=== PATIENT | female | born 1945 | race Two or more races ===

== ENCOUNTER 2017-12-14 07:31 | Day surgery (SDC) | payer OTHER, BC ==
[2017-12-06 18:23] VITALS: BMI 31.3
[2017-12-14] MEDS: PHENYLEPHRINE 2.5% OPHTH SOLN 15 ML BOTTLE ONE ×5 (08:00→08:20)
[2017-12-14] MEDS ORDERED: GENTAMICIN SULFATE 0.3% OPHTHALMIC (EYE DROPS) 5ML BOTTLE OS SCH (08:00)
[2017-12-14] MEDS: KETOROLAC TROMETHAMINE 0.5% EYE DROP 1 DROP DROPS ONE ×5 (08:00→08:20)
[2017-12-14] MEDS: CYCLOPENTOLATE HCL 1% OPHTH SOLN 2 ML BOTTLE ONE ×5 (08:00→08:20)
[2017-12-14] MEDS ORDERED: TROPICAMIDE 1% OPHTH SOLN 15 ML BOTTLE OS SCH (08:00)
[2017-12-14] MEDS ORDERED: CYCLOPENTOLATE HCL 1% OPHTH SOLN 2 ML BOTTLE OS SCH (08:00)
[2017-12-14] MEDS: GENTAMICIN SULFATE 0.3% OPHTHALMIC (EYE DROPS) 5ML BOTTLE ONE ×5 (08:00→08:20)
[2017-12-14] MEDS ORDERED: KETOROLAC TROMETHAMINE 0.5% EYE DROP 1 DROP DROPS OS SCH (08:00)
[2017-12-14] MEDS: TROPICAMIDE 1% OPHTH SOLN 15 ML BOTTLE ONE ×5 (08:00→08:20)
[2017-12-14] MEDS ORDERED: PHENYLEPHRINE 2.5% OPHTH SOLN 15 ML BOTTLE OS SCH (08:00)
[2017-12-14] MEDS ORDERED: TETRACAINE 0.5% OPHTH SOLN 2 ML BOTTLE ONE (09:15)
[2017-12-14] MEDS ORDERED: POVIDONE-IODINE 5% OPHTHALMIC PREP 30 ML SOLUTION ONE (09:15)
[2017-12-14] MEDS ORDERED: EPI-SHUGARCAINE (EPINEPHRINE 0.025% & LIDOCAINE-PF 0.75%) 4ML ONE (09:15)
[2017-12-14] MEDS ORDERED: ACETYLCHOLINE 1:100 INTRA-OCUL 20 MG/2 ML KIT ONE (09:16)
[2017-12-14] MEDS ORDERED: BSS (NA/CA/MG/K) BALANCED SALT SOLUTION OPHTH SOLN 15 ML BOTTLE ONE (09:16)
[2017-12-14] MEDS ORDERED: MIDAZOLAM HCL 2 MG/2 ML SINGLE DOSE VIAL ONE (09:29)
[2017-12-14] MEDS ORDERED: ACETAMINOPHEN 325 MG TABLET (FP) PO PRN (10:42)
[2017-12-14 11:02] VITALS: TEMP 98.3
--- NOTE | 2017-12-14 11:28 | OP ---
DATE OF OPERATION: 12/14/2017 PREOPERATIVE DIAGNOSIS: Cataract, left eye. POSTOPERATIVE DIAGNOSIS: Cataract, left eye. PROCEDURE: Cataract extraction via phacoemulsification with insertion of posterior chamber lens implant, left eye. SURGEON: Aman Robledo MD LIFT SUPERVISOR: Susan Mendez MD ANESTHESIA: Topical with sedation. ESTIMATED BLOOD LOSS: Less than 1 mL. COMPLICATIONS: None. SPECIMENS: None. DESCRIPTION OF PROCEDURE: The patient was identified in the holding area. After all risks, benefits, and alternatives were explained to the patient, informed consent was obtained. The left eye was marked with a marking pen. The patient then entered the operating room on an eye stretcher. After a formal time-out was performed, topical tetracycline eye drops were instilled onto the left eye. The left eye was then prepped and draped in the usual sterile fashion. An eyelid speculum was placed beneath the eyelid of the left eye. An inferotemporal paracentesis incision was created using [id number] blade. Topical preservative-free epinephrine and preservative-free lidocaine was then injected into the anterior chamber. Viscoelastic was then injected into the anterior chamber. A 2.4-mm keratome blade was then used to make a superotemporal incision. A 360-degree continuous curvilinear capsulorrhexis was then created using bent cystotome and Utrata forceps. Hydrodissection was performed using balanced saline solution on a cannula. Phacoemulsification was introduced to disassemble and remove the nucleus in its entirety. Irrigation/aspiration was then used to remove any remaining cortical material from the eye. The capsular bag was reformed using viscoelastic. An [employer] Model [id number] with a power of 22.0 diopters serial number [id number] was inspected and found to be defect free and injected into the capsular bag. Irrigation/aspiration was then used to remove any remaining viscoelastic from the eye. The capsular bag was reformed using balanced saline solution, and the anterior chamber was reformed using balanced saline solution. Intracameral injections of Miochol and Miostat were then administered, and the pupil came down and was round. All wounds were hydrated with balanced saline solution and noted to be watertight. The anterior chamber was deep. The lens was perfectly centered in the capsular bag. The eye had an adequate pressure, and there was a red reflex present. Topical antibiotic eyedrops and ointment were then applied to the left eye. The eyelid speculum was removed from the left eye. The left eye was shielded. The patient tolerated the procedure well and left the operating room in stable condition to follow up in the eye clinic tomorrow at 9 o'clock. AMAN ROBLEDO M.D. [id number]
[2017-12-14 11:46] VITALS: BP 114/49; PULSE 68
== END 2017-12-14 11:40 | disposition home or self-care (01) ==
LOC: FASU 07:31 → EDBD 08:00 → FASU 11:40
PROVIDERS: ATTEND Ophthalmology
PROC: 08RK3JZ Replacement of Left Lens with Synthetic Substitute, Percutaneous Approach (ICD-10-PCS; principal; 2017-12-14 09:52)
DX: H26.9 Unspecified cataract (principal)

== ENCOUNTER 2020-07-16 08:47 | Day surgery (SDC) | payer OTHER, BC ==
[2020-07-15 11:05] VITALS: BMI 30.7
[2020-07-16] MEDS ORDERED: OFLOXACIN 0.3% OPHTHALMIC SOLUTION 5 ML BOTTLE ONE (08:58)
[2020-07-16] MEDS ORDERED: CYCLOPENTOLATE HCL 1% OPHTH SOLN 2 ML BOTTLE ONE (08:58)
[2020-07-16] MEDS ORDERED: KETOROLAC TROMETHAMINE 0.5% EYE DROP 1 DROP DROPS ONE (08:58)
[2020-07-16] MEDS ORDERED: TROPICAMIDE 1% OPHTH SOLN 15 ML BOTTLE ONE (08:58)
[2020-07-16] MEDS ORDERED: PHENYLEPHRINE 2.5% OPHTH SOLN 15 ML BOTTLE ONE (08:58)
[2020-07-16] MEDS: PHENYLEPHRINE 2.5% OPHTH SOLN 15 ML BOTTLE OD SCH ×5 (09:15→09:35)
[2020-07-16] MEDS: KETOROLAC TROMETHAMINE 0.5% EYE DROP 1 DROP DROPS OD SCH ×5 (09:15→09:35)
[2020-07-16] MEDS: OFLOXACIN 0.3% OPHTHALMIC SOLUTION 5 ML BOTTLE OD SCH ×5 (09:15→09:35)
[2020-07-16] MEDS: TROPICAMIDE 1% OPHTH SOLN 15 ML BOTTLE OD SCH ×5 (09:15→09:35)
[2020-07-16] MEDS: CYCLOPENTOLATE HCL 1% OPHTH SOLN 2 ML BOTTLE OD SCH ×5 (09:15→09:35)
[2020-07-16] MEDS ORDERED: MIDAZOLAM HCL 2 MG/2 ML SINGLE DOSE VIAL ONE (11:20)
[2020-07-16] MEDS ORDERED: ACETAMINOPHEN 325 MG TABLET (FP) PO PRN (12:04)
[2020-07-16 13:00] VITALS: TEMP 97.7
[2020-07-16 13:16] VITALS: BP 122/56; PULSE 64
== END 2020-07-16 13:10 | disposition home or self-care (01) ==
LOC: FASU 08:47
PROVIDERS: ATTEND Ophthalmology
PROC: 08RJ3JZ Replacement of Right Lens with Synthetic Substitute, Percutaneous Approach (ICD-10-PCS; principal; 2020-07-16 11:38)
DX: H26.9 Unspecified cataract (principal)